=== PATIENT | male | born 1960 | race Caucasian/White ===

== ENCOUNTER 2017-02-21 15:38 | Observation (INO) | payer OTHER ==
[~2017-02-21] VITALS: Ht 165.1 cm; Wt 72.6 kg
[2017-02-21] VITALS (338 sets, daily range): BP systolic 124–126; BP diastolic 73–75; PULSE 65–80; TEMP 97.7–98.6; O2SAT 94–100
[~2017-02-21 15:38] MED LIST: ASPI325T6 PO; BRILINTA90 MG PO; CENTRUM SILVER1 CTB PO; CRESTOR40 MG PO; LOTREL 5/20 CAP1 CAP PO; MS CONTIN 330 MG/TAB PO; NITROSTAT0.4 MG/TAB SL; PERCOCET 325 MG1 TA2 PO; PRINZIDE 12.5 M1 TAB PO
[2017-02-21] MEDS ORDERED: TOPROL XL 50MG50 MG PO (17:46)
[2017-02-22] VITALS (395 sets, daily range): BP systolic 106–149; BP diastolic 70–86; PULSE 60–84; TEMP 98.2–98.6; O2SAT 90–100
[2017-02-22 06:25] LABS: BASO # 0.1 (0.0-0.2); BASO % 0.7 % (0.0-2.0); EOS # 0.2 (0.0-0.7); EOS % 3.1 % (0-4.0); GRAN % 53.3 % (42.2-75.2); HEMATOCRIT 37.8 % (42.0-52.0); HEMOGLOBIN 12.3 g/dl (13.5-18.0); LYMPH # 2.4 (1.2-3.4); LYMPH % 31.7 % (20.0-51.0); MEAN CELL VOLUME 95 fl (80.0-100.0); MEAN CORPUSCULAR HEMOGLOBIN 31 pg (27.0-31.0); MEAN CORPUSCULAR HGB CONC 33 g/dl (33.0-37.0); MEAN PLATELET VOLUME 10.4 fl (7.4-10.4); MONO # 0.8 (0.1-0.6); MONO % 10.9 % (1.7-9.3); PLATELET COUNT 195 K/mm3 (130-400); RED BLOOD COUNT 3.97 M/mm3 (4.20-5.60); WHITE BLOOD COUNT 7.4 K/mm3 (4.8-10.8)
[2017-02-22 06:36] LABS: ADJUSTED CALCIUM 8.9 mg/dL (8.4-10.2); ALBUMIN 3.6 gm/dL (3.5-5.0); BILIRUBIN,TOTAL 0.3 mg/dL (0.0-1.0); CALCIUM 8.6 mg/dL (8.4-10.2); CREATININE, serum 0.89 mg/dL (0.66-1.25); POTASSIUM 3.6 mmol/L (3.4-5.0); TOTAL PROTEIN 6.2 gm/dL (6.4-8.2)
[2017-02-22] MEDS ORDERED: ASPIRIN E.C. 8181 MG PO (10:22)
[2017-02-22] MEDS ORDERED: IMDUR 30MG30 MG/TAB PO (10:23)
== END 2017-02-22 14:53 | disposition home or self-care (01) ==
LOC: IMCU 15:38 → ICU 16:03
PROVIDERS: Internal Medicine
DX: R07.89 Other chest pain (principal); I25.119 Atherosclerotic heart disease of native coronary artery with unspecified angina pectoris; Z95.5 Presence of coronary angioplasty implant and graft; Z87.891 Personal history of nicotine dependence; I10 Essential (primary) hypertension; J44.9 Chronic obstructive pulmonary disease, unspecified; R91.8 Other nonspecific abnormal finding of lung field; R01.1 Cardiac murmur, unspecified; Z79.82 Long term (current) use of aspirin; R06.00 Dyspnea, unspecified; Z79.02 Long term (current) use of antithrombotics/antiplatelets; G89.29 Other chronic pain; Z87.01 Personal history of pneumonia (recurrent)
CPT/HCPCS: G0378; G0379; J1650

== ENCOUNTER 2018-02-27 11:09 | Observation (INO) | payer OTHER ==
[~2018-02-27] VITALS: Ht 165.1 cm; Wt 71.1 kg
[2018-02-27] VITALS (553 sets, daily range): BP systolic 124–136; BP diastolic 74–91; PULSE 60–72; TEMP 98–98.7; O2SAT 90–100
[~2018-02-27 11:09] MED LIST changes: +ASPIRIN E.C. 8181 MG PO; +IMDUR 30MG30 MG/TAB PO; +TOPROL XL 50MG50 MG PO
[2018-02-27] MEDS ORDERED: PLAQUENIL 200M200 MG PO (14:18)
[2018-02-27] MEDS ORDERED: LOTREL 10 MG-201 CAP PO (14:18)
[2018-02-27] MEDS ORDERED: PROTONIX 40MG T40 MG PO (14:19)
[2018-02-27] MEDS ORDERED: ARAVA10 MG PO (14:19)
[2018-02-27] MEDS ORDERED: PREDNISONE 5MG5 MG PO (14:21)
[2018-02-27 18:07] LABS: BASO % 0.3 % (0.0-2.0); EOS % 0.2 % (0-4.0); GRAN # 7.6 (1.4-6.5); GRAN % 81.8 % (42.2-75.2); HEMATOCRIT 40.1 % (42.0-52.0); HEMOGLOBIN 12.9 g/dl (13.5-18.0); LYMPH % 10.8 % (20.0-51.0); MEAN CELL VOLUME 94 fl (80.0-100.0); MEAN CORPUSCULAR HEMOGLOBIN 30 pg (27.0-31.0); MEAN CORPUSCULAR HGB CONC 32 g/dl (33.0-37.0); MEAN PLATELET VOLUME 10.2 fl (7.4-10.4); MONO # 0.6 (0.1-0.6); MONO % 6.5 % (1.7-9.3); PLATELET COUNT 186 K/mm3 (130-400); RED BLOOD COUNT 4.25 M/mm3 (4.20-5.60); REDCELL DISTRIBUTION WIDTH-CV 13.2 % (11.5-14.5)
[2018-02-27 18:18] LABS: ANION GAP 2 mmol/L (7-16); BLOOD UREA NITROGEN 15 mg/dL (9-20); CALCIUM 8.7 mg/dL (8.4-10.2); CARBON DIOXIDE 30 mmol/L (22-30); CHLORIDE 110 mmol/L (98-107); CREATININE, serum 0.79 mg/dL (0.66-1.25); GLUCOSE 112 mg/dL (74-106); POTASSIUM 4.4 mmol/L (3.4-5.0); SODIUM 142 mmol/L (137-145)
[2018-02-27 18:29] LABS: TROPONIN-I 6 HR POST INITIAL < 0.012 ng/mL (0.000-0.034)
[2018-02-28] VITALS (1012 sets, daily range): BP systolic 102–145; BP diastolic 56–96; PULSE 50–70; TEMP 97.6–98.6; O2SAT 88–100
[2018-02-28 05:33] LABS: BASO % 0.3 % (0.0-2.0); EOS # 0.1 (0.0-0.7); EOS % 0.9 % (0-4.0); GRAN # 5.3 (1.4-6.5); HEMATOCRIT 40.1 % (42.0-52.0); HEMOGLOBIN 12.9 g/dl (13.5-18.0); LYMPH % 32.9 % (20.0-51.0); MEAN CELL VOLUME 94 fl (80.0-100.0); MEAN CORPUSCULAR HEMOGLOBIN 30 pg (27.0-31.0); MEAN CORPUSCULAR HGB CONC 32 g/dl (33.0-37.0); MEAN PLATELET VOLUME 10.3 fl (7.4-10.4); MONO # 0.7 (0.1-0.6); MONO % 7.6 % (1.7-9.3); PLATELET COUNT 190 K/mm3 (130-400); RED BLOOD COUNT 4.26 M/mm3 (4.20-5.60); REDCELL DISTRIBUTION WIDTH-CV 13.3 % (11.5-14.5)
[2018-02-28 05:57] LABS: CALCIUM 8.9 mg/dL (8.4-10.2); CREATININE, serum 0.82 mg/dL (0.66-1.25); POTASSIUM 4.1 mmol/L (3.4-5.0)
[2018-03-01] VITALS (408 sets, daily range): BP systolic 112–136; BP diastolic 69–77; PULSE 47–60; TEMP 98; O2SAT 87–100
[2018-03-01 05:38] LABS: BASO % 0.4 % (0.0-2.0); EOS # 0.1 (0.0-0.7); EOS % 0.7 % (0-4.0); GRAN # 6.3 (1.4-6.5); GRAN % 64.5 % (42.2-75.2); HEMATOCRIT 42.5 % (42.0-52.0); HEMOGLOBIN 13.9 g/dl (13.5-18.0); LYMPH # 2.3 (1.2-3.4); LYMPH % 23.7 % (20.0-51.0); MEAN CELL VOLUME 92 fl (80.0-100.0); MEAN CORPUSCULAR HEMOGLOBIN 30 pg (27.0-31.0); MEAN CORPUSCULAR HGB CONC 33 g/dl (33.0-37.0); MEAN PLATELET VOLUME 10.4 fl (7.4-10.4); MONO % 10.4 % (1.7-9.3); PLATELET COUNT 179 K/mm3 (130-400); REDCELL DISTRIBUTION WIDTH-CV 13.3 % (11.5-14.5)
[2018-03-01 05:52] LABS: CALCIUM 8.9 mg/dL (8.4-10.2); CREATININE, serum 0.91 mg/dL (0.66-1.25)
[2018-03-01] MEDS ORDERED: RANEXA 500MG T500 MG PO (13:01)
== END 2018-03-01 13:30 | disposition home or self-care (01) ==
LOC: MEDICAL 11:09 → IMCU 11:31 → ICU 12:46
PROVIDERS: Internal Medicine; Internal Medicine Cardiovascular Disease
DX: I25.10 Atherosclerotic heart disease of native coronary artery without angina pectoris (principal); I10 Essential (primary) hypertension; E78.5 Hyperlipidemia, unspecified; R91.8 Other nonspecific abnormal finding of lung field; J44.9 Chronic obstructive pulmonary disease, unspecified; M06.9 Rheumatoid arthritis, unspecified; F17.210 Nicotine dependence, cigarettes, uncomplicated; Z79.82 Long term (current) use of aspirin; Z80.0 Family history of malignant neoplasm of digestive organs; Z80.3 Family history of malignant neoplasm of breast
CPT/HCPCS: OP; 99232-AI; C1760; C1769; C1894; G0378; G0379; J1644; J1650; J2250; J3010; J7030; J7512; Q9967

== ENCOUNTER → 2019-09-08 | Outpatient (CLI) | payer OTHER ==
[~2019-09-08] MED LIST changes: +ARAVA10 MG PO; +LOTREL 10 MG-201 CAP PO; +PLAQUENIL 200M200 MG PO; +PREDNISONE 5MG5 MG PO; +PROTONIX 40MG T40 MG PO; +RANEXA 500MG T500 MG PO
== END ==
LOC: COL.RAD 09:36
DX: R10.11 Right upper quadrant pain (principal)
CPT/HCPCS: A9537; J2805

== ENCOUNTER 2019-10-25 06:13 | Day surgery (SDC) | payer OTHER ==
[2019-10-25] VITALS (7 sets, daily range): BP systolic 118–135; BP diastolic 69–83; PULSE 67–76; TEMP 97.2–98.1
[~2019-10-25] VITALS: Ht 165.1 cm; Wt 74.1 kg
[2019-10-25] MEDS ORDERED: RANEXA1000 MG PO (06:43)
[2019-10-25] MEDS ORDERED: MASON NATURAL2000 IU PO (06:45)
[2019-10-25] MEDS ORDERED: NITROSTAT0.4 MG/TAB SL (07:03)
[2019-10-25] MEDS ORDERED: NORCO 325 MG-51 TAB PO (09:18)
--- NOTE | 2019-10-25 09:55 | NUR ---
Patient returns to room 7 per cart from PACU accompanied by Cha STARKEY and is awake and alert. Tmep 97.2 and room air sats 96%. Bandaids x4 clean and dry. IV fluids infusing and siderails up x2. States that he is having minimial back discomfort and warm blanket placed behind the back. Denies nausea. Given coffee to drink.
--- NOTE | 2019-10-25 10:10 | NUR ---
Resting and sipping on coffee. Denies pain or nausea.
--- NOTE | 2019-10-25 10:25 | NUR ---
Room air sats 95%. Denies nausea or pain. Given muffin and second cup of coffee.
--- NOTE | 2019-10-25 10:40 | NUR ---
Continues to deny pain or nausea.
--- NOTE | 2019-10-25 10:55 | NUR ---
Resting and continues to deny pain or nausea.
--- NOTE | 2019-10-25 11:07 | NUR ---
IV converted to INT. Assisted up to the bathroom. Gait steady. Able to void and returns to room.
--- NOTE | 2019-10-25 11:10 | NUR ---
IV discontinued and patient dresse self. Ride notified and will be here in 30 minutes.
--- NOTE | 2019-10-25 11:30 | NUR ---
Dismissal instructions given and voices understanding of these. Provided script for [place]
--- NOTE | 2019-10-25 11:47 | NUR ---
Patient dismissed to home driven by spouse and taken to the front door per wheelchair and assisted into car by this RN with instructions in hand.
== END 2019-10-25 11:47 | disposition home or self-care (01) ==
LOC: SDCO 06:13
DX: K81.1 Chronic cholecystitis (principal); K82.8 Other specified diseases of gallbladder; I10 Essential (primary) hypertension; E78.00 Pure hypercholesterolemia, unspecified; K21.9 Gastro-esophageal reflux disease without esophagitis; I25.10 Atherosclerotic heart disease of native coronary artery without angina pectoris; M19.90 Unspecified osteoarthritis, unspecified site; Z83.3 Family history of diabetes mellitus; Z79.82 Long term (current) use of aspirin; Z87.891 Personal history of nicotine dependence; Z95.5 Presence of coronary angioplasty implant and graft; Z20.828 Contact with and (suspected) exposure to other viral communicable diseases
CPT/HCPCS: J0690; J1100; J1885; J2405; J2704; J3010; J7120

== ENCOUNTER → 2020-07-02 | Outpatient (CLI) | payer OTHER ==
[~2020-07-02] MED LIST changes: +MASON NATURAL2000 IU PO; +NORCO 325 MG-51 TAB PO; +RANEXA1000 MG PO
== END ==
LOC: COL.RAD 06:46
DX: M25.511 Pain in right shoulder (principal)

== ENCOUNTER 2021-06-26 11:56 | Day surgery (SDC) | payer OTHER ==
[2021-06-26] VITALS (9 sets, daily range): BP systolic 110–143; BP diastolic 70–89; PULSE 64–78; TEMP 98.6
[~2021-06-26] VITALS: Ht 165.2 cm; Wt 79.2 kg
[2021-06-26] MEDS ORDERED: LOTENSIN20 MG PO (12:43)
[2021-06-26] MEDS ORDERED: NORVASC 10MG10 MG PO (12:43)
[2021-06-26 13:02] LABS: HEMATOCRIT 45.6 % (42.0-52.0); HEMOGLOBIN 15.3 g/dl (13.5-18.0); MEAN CELL VOLUME 91 fl (80.0-100.0); MEAN CORPUSCULAR HEMOGLOBIN 31 pg (27-31); MEAN CORPUSCULAR HGB CONC 34 g/dl (33.0-37.0); MEAN PLATELET VOLUME 10.1 fl (7.4-10.4); PLATELET COUNT 216 K/mm3 (130-400); RED BLOOD COUNT 4.99 M/mm3 (4.20-5.60); REDCELL DISTRIBUTION WIDTH-CV 13.5 % (11.5-14.5)
[2021-06-26 13:09] LABS: PROTHROMBIN TIME 11.6 SECONDS (9.7-12.8)
[2021-06-26 13:12] LABS: PARTIAL THROMBOPLASTIN TIME 32.3 SECONDS (26.0-37.0)
[2021-06-26 13:18] LABS: CREATININE, serum 0.92 mg/dL (0.72-1.25); POTASSIUM 4.3 mmol/L (3.5-4.5)
--- NOTE | 2021-06-26 13:51 | NUR ---
Moderate sedation assessment completed in express unit. See merge for all medication, vital sign, assessment, and intervention times.
--- NOTE | 2021-06-26 17:45 | NUR ---
Pt did well during his recovery. No problems with rt radial site. TR band was deflated without any bleeding. Site dressed with bandaid, folded 2x2 and coban. cms remains intact distal. I reviewed dc/fu instructions with pt and his ex-. No questions or concerns expressed. Pt is steady on his feet. IV dc'd with cath intact, dressing applied. Pt escorted to exit via wheelchair.
== END 2021-06-26 18:12 | disposition home or self-care (01) ==
LOC: COL.CAR 11:56
PROVIDERS: Internal Medicine Interventional Cardiology
DX: I25.119 Atherosclerotic heart disease of native coronary artery with unspecified angina pectoris (principal); I34.0 Nonrheumatic mitral (valve) insufficiency; I10 Essential (primary) hypertension; R07.89 Other chest pain
CPT/HCPCS: C1769; J1644; J2250; J3010

== ENCOUNTER 2021-07-01 08:35 | Day surgery (SDC) | payer OTHER ==
[~2021-07-01] VITALS: Ht 165.1 cm; Wt 77.7 kg
[~2021-07-01 08:35] MED LIST changes: +LOTENSIN20 MG PO; +NORVASC 10MG10 MG PO
[2021-07-01 11:15] VITALS: BP 117/76; PULSE 74; TEMP 98.2
--- NOTE | 2021-07-01 11:15 | NUR ---
Pt arrived from endo procedure, drowsy but oriented. Chair was moved closer to the cart, before the pt was assisted with ambulating to chair from cart. Vitals obtained. Verbal report obtained. Pt requested hot coffee and "any kind of juice". Family contact is present. Call boyd is within reach on side table.
[2021-07-01 11:30] VITALS: BP 119/73; PULSE 67
--- NOTE | 2021-07-01 11:30 | NUR ---
Pt denies nausea and requested a warm muffin. Vitals obtained. Call boyd remains within reach.
[2021-07-01 11:45] VITALS: BP 142/91; PULSE 61
--- NOTE | 2021-07-01 11:45 | NUR ---
Vitals obtained. Pt has finished his muffin. Pt then abmulated to bathroom without difficulty. Pt returned to chair and expressed desire to be discharged.
--- NOTE | 2021-07-01 12:05 | NUR ---
IV discontinued. Catheter tip intact. Pressure bandage applied. No redness or swelling noted. DC instructions and educational material was reviewed with the pt, who verbalized understanding and signed the related paperwork. Pt was then dismissed from endo via wheelchair to the pt entrence by LALITO Aly and his family contact. Pt was transferred into the care of Alisha, who is present to drive. Pt has DC packet in hand and personal belongings
[2021-07-01 12:33] VITALS: BP 134/97; PULSE 77; TEMP 98
== END 2021-07-01 12:25 | disposition home or self-care (01) ==
LOC: SDCO 08:35
DX: Z12.11 Encounter for screening for malignant neoplasm of colon (principal); D12.4 Benign neoplasm of descending colon; K64.0 First degree hemorrhoids; Z87.891 Personal history of nicotine dependence
CPT/HCPCS: J2704; J7030

== ENCOUNTER 2021-10-14 08:07 | Day surgery (SDC) | payer OTHER ==
[~2021-10-14] VITALS: Ht 165.1 cm; Wt 77.2 kg
[2021-10-14] MEDS ORDERED: FLOMAX 0.40.4 MG/CAP PO (08:34)
[2021-10-14] MEDS ORDERED: CIPRO 500MG TA500 MG PO (08:35)
[2021-10-14] MEDS ORDERED: PROSCAR 5MG5 MG PO (08:35)
[2021-10-14 08:37] VITALS: BP 130/73; PULSE 72; TEMP 98
[2021-10-14 11:45] VITALS: BP 129/74; PULSE 71; TEMP 97.7
[2021-10-14 12:00] VITALS: BP 131/75; PULSE 69
[2021-10-14 12:15] VITALS: BP 129/75; PULSE 70
--- NOTE | 2021-10-14 14:06 | NUR ---
1145: Patient arrived back into bay 1. Significant other at bedside. Report received from LALITO Eubanks. Vital signs stable on room air. Incision is clean, dry intact. Patient requesting muffin and sprite. Denies pain or nausea. Call light left within reach. 1200: Patient up to restroom. Vital signs stable, denies pain or nausea 1215: Patient meets discharge criteria. IV removed without complications. Went through discharge instructions with patient and significant other. Questions answered. Patient got dressed independently. Patient then escorted to patient entrance via wheelchair. Patient got into personal vehicle independently. Patient left in the care of his significant other, Louise.
[2021-10-14 14:25] VITALS: BP 129/74; PULSE 76; TEMP 96.8
== END 2021-10-14 12:30 | disposition home or self-care (01) ==
LOC: SDCO 08:07
DX: R70.0 Elevated erythrocyte sedimentation rate (principal); G44.89 Other headache syndrome; Z87.891 Personal history of nicotine dependence
CPT/HCPCS: J0690; J1100; J2405; J2704; J3010; J7120

== ENCOUNTER → 2023-01-20 | Outpatient (CLI) | payer OTHER ==
[~2023-01-20] MED LIST changes: +CIPRO 500MG TA500 MG PO; +FLOMAX 0.40.4 MG/CAP PO; +PROSCAR 5MG5 MG PO; +PYRIDIUM 100MG100 MG PO; +ZETIA 10MG TAB10 MG PO
== END ==
LOC: CANSCHCLI → COL.PUL 09:11
DX: R06.02 Shortness of breath (principal)

== ENCOUNTER 2023-03-23 08:29 | Day surgery (SDC) | payer OTHER ==
[~2023-03-23] VITALS: Ht 165.1 cm; Wt 80.0 kg
[2023-03-23] MEDS ORDERED: UBRELVY50 MG PO (09:21)
[2023-03-23] MEDS ORDERED: VENTOLIN0.09 MG IH (09:23)
[2023-03-23] MEDS ORDERED: ASPIRIN 81M81 MG/TA2 PO (09:24)
[2023-03-23] MEDS ORDERED: CYMBALTA 30MG30 MG PO (09:24)
[2023-03-23] MEDS ORDERED: PRINIVIL5 MG PO (09:24)
[2023-03-23] MEDS ORDERED: RT ADVAIR 228 DISKUS IH (09:25)
[2023-03-23] MEDS ORDERED: TOPROL XL 25MG25 MG PO (09:25)
[2023-03-23 10:13] VITALS: BP 100/71; PULSE 79
[2023-03-23 10:30] VITALS: BP 125/82; PULSE 78
[2023-03-23 10:33] VITALS: BP 139/86; PULSE 77; TEMP 98.1
[2023-03-23 10:45] VITALS: BP 126/86; PULSE 73
--- NOTE | 2023-03-23 12:00 | NUR ---
[id number]: PT TO RECOVERY BAY 5 FROM ENDO S/P EGD WITH BIOPSIES A&O, PLACED ON MONITOR, VSS ON RA RECEIVED REPORT AND ASSUMED CARE OF PT FROM LALITO MOORE SPOUSE AT BEDSIDE PROVIDED FLUIDS/FOOD, TOLERATING WELL MD IN TO SPEAK WITH PT POST-PROCEDURE PT HAS REMAINED A&O, NAD, VSS ON RA, TOLERATING PO, IS WITHOUT SIGNIFICANT COMPLAINT, WITH STEADY GAIT THRU OUT STAY IV D/C'D. D/C INSTRUCTIONS, ANY FOLLOW UP REVIEWED AND HANDED TO PT. ALL QUESTIONS AND CONCERNS ADDRESSED TO PT SATISFACTION. TAKEN TO EXIT VIA W/C WITH ALL BELONGINGS AND PAPERWORK IN HAND, ASSISTED INTO PASSENGER SEAT OF POV. TO DRIVE HOME.
== END 2023-03-23 11:07 | disposition home or self-care (01) ==
LOC: SDCO 08:29
DX: K22.70 Barrett's esophagus without dysplasia (principal); K29.30 Chronic superficial gastritis without bleeding; K21.9 Gastro-esophageal reflux disease without esophagitis
CPT/HCPCS: J2704; J7120

== ENCOUNTER 2023-04-06 09:42 | Day surgery (SDC) | payer OTHER ==
[~2023-04-06] VITALS: Ht 165.1 cm; Wt 80.1 kg
[~2023-04-06 09:42] MED LIST changes: +ASPIRIN 81M81 MG/TA2 PO; +CYMBALTA 30MG30 MG PO; +LR 1,000 ML IV SCH; +PRINIVIL5 MG PO; +RT ADVAIR 228 DISKUS IH; +TOPROL XL 25MG25 MG PO; +UBRELVY50 MG PO; +VENTOLIN0.09 MG IH
[2023-04-06 11:37] LABS: CALCIUM 9.7 mg/dL (8.4-10.2); CREATININE, serum 0.88 mg/dL (0.72-1.25); POTASSIUM 4.9 mmol/L (3.5-4.5)
[2023-04-06] MEDS ORDERED: Ondansetron 4 MG/2 ML VIAL ONE (12:17)
[2023-04-06] MEDS ORDERED: Lidocaine PF 2% (20 MG/ML) 5 ML VIAL ONE (12:17)
[2023-04-06] MEDS ORDERED: fentaNYL 50 MCG/ML 5 ML VIAL ONE (12:18)
[2023-04-06] MEDS ORDERED: Rocuronium 50 MG/5 ML Multi-Dose VIAL ONE (12:18)
[2023-04-06] MEDS ORDERED: Ondansetron 4 MG/2 ML VIAL IV PRN ×2 (13:30→14:15)
[2023-04-06] MEDS ORDERED: fentaNYL 50 MCG/ML 2 ML VIAL IV PRN (14:15)
[2023-04-06] MEDS ORDERED: HYDROmorphone 2 MG/1 ML VIAL IV PRN (14:15)
[2023-04-06] MEDS ORDERED: Ketorolac 15 MG/ML VIAL IV SCH (16:00)
[2023-04-06 16:10] VITALS: BP 124/64; PULSE 95; TEMP 97
[2023-04-06 16:25] VITALS: BP 128/83; PULSE 86
[2023-04-06 16:40] VITALS: BP 128/81; PULSE 91
[2023-04-06 16:55] VITALS: BP 116/82; PULSE 93
[2023-04-06 17:25] VITALS: BP 118/80; PULSE 90
--- NOTE | 2023-04-06 19:21 | NUR ---
[id number]: PT TO RECOVERY BAY 6 FROM PACU S/P ROBOTIC EPIGASTRIC HERNIA REPAIR WITH MESH. STUPOROUS&ABLE TO ANSWER QUESTIONS IN A FEW WORD SENTENCES - C/O EPIGASTRIC PAIN AND CERVICAL AND L SHOULDER PAIN, DIZZINESS, NEEDING 3L NC S/P IV PAIN MEDS AND GENERAL ANESTHESIA. PLACED ON MONITOR, VSS ON 3L NC 3 TROCAR SITES COVERED WITH BANDAIDS, CDI RECEIVED REPORT AND ASSUMED CARE OF PT FROM LALITO PATRICIA. AT BEDSIDE 1650 PT MORE AWAKE (L&O, C/O SEVERE EPIGASTRIC PAIN, 50 MCG FENTANYL GIVEN, TOLERATED WELL, ULTIMATELY RESULTING IN TOLERABLE MODERATE PAIN. HAS BEEN WEANED TO RA AT THIS TIME SUCCESSFULLY - VSS. PROVIDED FOOD/FLUIDS - TOLERATING WELL. 1725 1 TAB NORCO-5 GIVEN FOR MOD-SEVERE EPIGASTRIC PAIN (WORSE AFTER GETTING OOB AND DRESSED). PT DECLINING FURTHER INTERVENTION OR MEDS AT THIS TIME. PT A&O, NAD, VSS ON RA, TOLERATING PO, IS WITHOUT SIGNIFICANT COMPLAINT, WITH STEADY GAIT BY END OF STAY. DRSG REMAINS CDI. IV D/C'D. D/C INSTRUCTIONS, DIRECTIONS TO SCHEDULE 2 WK FOLLOW UP APPT REVIEWED AND HANDED TO PT. ALL QUESTIONS AND CONCERNS ADDRESSED TO PT SATISFACTION. TAKEN TO EXIT VIA W/C WITH ALL BELONGINGS AND PAPERWORK IN HAND, ASSISTED INTO PASSENGER SEAT OF POV. TO DRIVE HOME.
== END 2023-04-06 17:40 | disposition home or self-care (01) ==
LOC: SDCO 09:42
PROVIDERS: Nurse Anesthetist, Certified Registered
DX: K43.2 Incisional hernia without obstruction or gangrene (principal); K21.9 Gastro-esophageal reflux disease without esophagitis; K44.9 Diaphragmatic hernia without obstruction or gangrene; I10 Essential (primary) hypertension; Z95.5 Presence of coronary angioplasty implant and graft; Z79.899 Other long term (current) drug therapy; Z87.891 Personal history of nicotine dependence; Z95.1 Presence of aortocoronary bypass graft; Z79.01 Long term (current) use of anticoagulants; Z95.2 Presence of prosthetic heart valve
CPT/HCPCS: C1781; J0690; J1170; J1885; J2405; J2704; J3010; J7120